=== PATIENT | male | born 1970 | race American Indian/Alaskan Native ===

== ENCOUNTER 2020-08-08 11:43 | Emergency (ER) | payer MEDICAID, OTHER ==
[2020-08-08] MEDS ORDERED: ACETAMINOPHEN 500 MG TAB PO ONE (13:33)
[2020-08-08] MEDS ORDERED: IBUPROFEN 400 MG TAB PO ONE (13:33)
--- NOTE | 2020-08-08 13:33 | Emergency Department Report ---
ED General Adult HPI - General Chief complaint: Dyspnea/Respdistress Stated complaint: RT/BACK PAIN/CANT WALK PUI?: No Time Seen by Provider: 08/08/20 13:20 Source: patient, RN notes reviewed Mode of arrival: Ambulatory Limitations: No Limitations - History of Present Illness Initial comments: The patient was evaluated in the emergency department for symptoms described in the history of present illness. He/she was evaluated in the context of the global COVID-19 pandemic, which necessitated consideration that the patient susana ht be at risk for infection with the virus that causes COVID-19. Institutional protocols and algorithms that pertain to the evaluation of patients at risk for COVID-19 are in a state of rapid change based on information released by regulatory bodies including the CDC and federal and state organizations. These policies and algorithms were followed during the patient's care in the emergency department. Please note that these policies, procedures and recommendations changed on a rapid basis. Pulmonology: Dr Sarah Stern Primary care doctor: Dr Castillo The patient is a pleasant 49-year-old gentleman. He is not known to myself previously. He appears to have a history of morbid obesity, hypertension, sleep apnea, and reports compliant with CPAP. He also reports chronic lower back pain. His primary care doctor has "prescribed me muscle relaxants and pain pills for my back pain." He reports that he has bilateral paralumbar lower back pain, which is nontraumatic, present for "over a year." The pain is sharp and throbbing, increases with palpation, range of motion and decreases with rest. He denies headache, neck pain, chest pain, new or different shortness of breath, new or different cough, abdominal pain, posterior calf pain/swelling, recent travel, immobilization, and DVT/pulmonary embolism risk factors. He reports that his nontraumatic paralumbar back pain does not radiate anywhere, but it is gradually getting worse, and he endorses "tightness" in his bilateral hamstrings. There is no bladder or bowel retention or incontinence, and there is no saddle anesthesia. Thus far, he has not attempted physical therapy and/or weight loss. -: month(s), year(s) (Over 1 year) Location: back Radiation: non-radiation Quality: aching Consistency: intermittent Improves with: rest Worsens with: movement, other (Palpation) - Related Data Previous Rx's Medication Instructions Recorded Last Taken Type Acetaminophen [Non-Aspirin Extra 500 mg PO Q6HR PRN #30 tablet 08/08/20 Unknown Rx Strength] Ibuprofen [Motrin] 600 mg PO Q8H PRN #30 tablet 08/08/20 Unknown Rx Allergies Allergy/AdvReac Type Severity Reaction Status Date / Time No Known Allergies Allergy Unverified 08/08/20 11:54 ED Review of Systems ROS: Stated complaint: RT/BACK PAIN/CANT WALK Other details as noted in HPI Constitutional: denies: fever Eyes: denies: eye discharge ENT: denies: hearing loss Respiratory: other (Chronic shortness of breath, but not new, worsened or different). denies: cough Cardiovascular: denies: chest pain Gastrointestinal: denies: abdominal pain Genitourinary: as per HPI Musculoskeletal: back pain Neurological: denies: weakness, numbness, paresthesias ED Past Medical Hx - Past Medical History Previous Medical History?: Yes Hx Hypertension: Yes - Surgical History Additional Surgical History: valve replacement 1992 - Social History Smoking Status: Current Some Day Smoker Substance Use Type: None - Medications Home Medications: Home Medications Medication Instructions Recorded Confirmed Last Taken Type Acetaminophen [Non-Aspirin Extra 500 mg PO Q6HR PRN #30 tablet 08/08/20 Unknown Rx Strength] Ibuprofen [Motrin] 600 mg PO Q8H PRN #30 tablet 08/08/20 Unknown Rx ED Physical Exam - General Limitations: No Limitations General appearance: alert, in no apparent distress, obese - Head Head exam: Present: atraumatic, normocephalic - Eye Eye exam: Present: normal appearance, EOMI. Absent: nystagmus - ENT ENT exam: Present: normal exam, normal orophraynx, mucous membranes moist, normal external ear exam - Neck Neck exam: Present: normal inspection, full ROM. Absent: tenderness, meningismus - Respiratory Respiratory exam: Present: normal lung sounds bilaterally. Absent: respiratory distress, wheezes, rales, rhonchi, stridor, decreased breath sounds - Cardiovascular Cardiovascular Exam: Present: regular rate, normal rhythm, normal heart sounds. Absent: bradycardia, tachycardia, irregular rhythm, systolic murmur, diastolic murmur, rubs, gallop - GI/Abdominal GI/Abdominal exam: Present: soft. Absent: distended, tenderness, guarding, rebound, rigid, pulsatile mass - Rectal Rectal exam: Present: deferred - Extremities Exam Extremities exam: Present: normal inspection, full ROM, other (2+ pulses noted in the bilateral upper and lower extremities. There is no palpable cord. negative Homans sign. Muscular compartments are soft. The pelvis is stable.). Absent: calf tenderness - Back Exam Back exam: Present: normal inspection, full ROM, paraspinal tenderness. Absent: tenderness, CVA tenderness (R) - Neurological Exam Neurological exam: Present: alert, oriented X3, normal gait, other (No facial droop. Tongue midline. Extraocular movements intact bilaterally. Facial sensation intact to light touch in V1, V2, V3 distribution bilaterally. 5 and a 5 strength in 4 extremities. Sensation intact to light touch in 4 extremities.). Absent: motor sensory deficit (Sensation intact to light touch, pinch, and proprioception in the bilateral lower extremities, downgoing plantar reflexes noted bilaterally) - Psychiatric Psychiatric exam: Present: normal affect, normal mood - Skin Skin exam: Present: warm, dry, intact, normal color. Absent: rash ED Course Vital Signs 08/08/20 08/08/20 08/08/20 11:53 11:54 13:20 Temperature 98.7 F Pulse Rate 99 H 98 H 92 H Respiratory 18 25 H Rate Blood Pressure 132/75 O2 Sat by Pulse 97 96 Oximetry 08/08/20 13:31 Temperature Pulse Rate 101 H Respiratory 22 Rate Blood Pressure 127/72 O2 Sat by Pulse Oximetry ED Medical Decision Making - Lab Data Vital Signs 08/08/20 08/08/20 08/08/20 11:53 11:54 13:20 Temperature 98.7 F Pulse Rate 99 H 98 H 92 H Respiratory 18 25 H Rate Blood Pressure 132/75 O2 Sat by Pulse 97 96 Oximetry 08/08/20 13:31 Temperature Pulse Rate 101 H Respiratory 22 Rate Blood Pressure 127/72 O2 Sat by Pulse Oximetry - Medical Decision Making Differential diagnosis, including but not limited to: Mechanical back pain, musculoskeletal back pain Assessment and plan: 49-year-old gentleman, who is pleasant, calm and cooperative, with resolved tachycardia, who is not hypoxic, who is not currently tachypneic, respiratory rate 18 on my examination, saturating 100% on room air, with a primary complaint of paralumbar back pain, present for approximately 1 year. He has no pulsatile abdominal mass, he walks with a steady gait, sensa tion is intact to light touch, pinch, and proprioception in the bilateral upper and lower extremities, and he is downgoing plantar reflexes. Examination and history not consistent or suggestive of epidural compression syndrome, or AAA. Extensive discussion had with the patient emphasizing need for diet, weight loss, physical activities as tolerated, and outpatient physical therapy. The patient endorses understanding. Critical care attestation.: If time is entered above; I have spent that time in minutes in the direct care of this critically ill patient, excluding procedure time. ED Disposition Clinical Impression: Back pain, Obesity Disposition: [id number] TO HOME OR SELFCARE Is pt being admited?: No Does the pt Need Aspirin: No Condition: Stable Instructions: Back Pain (ED) Additional Instructions: We recommend that the patient lose weight, participate in physical activities and exercise as tolerated, patient may take the prescribed pain medications as needed and directed, maximum daily dose of Tylenol to not exceed 3 g per 24 hours. We recommend that the patient also participate in physical therapy, he may follow-up with an outpatient primary care doctor, or ear specialist to arrange outpatient physical therapy. Avoid heavy lifting, and excessively strenuous physical activity, do not lift heavy objects at work, please follow-up with a spine physician or primary care doctor within the next 7 to 10 days. Please return to the emergency room right away with new pain, worsening pain, migration of pain, projectile vomiting, change in mental status, confusion, inability to tolerate liquid feeds, extremity numbness/weakness, bladder or bowel retention/incontinence. Referrals: FREDDIE CASTILLO III, GEOVANNA [Primary Care Provider] - 3-5 Days ANGELA VELEZ II, MD [Staff Physician] - 3-5 Days Forms: Work/School Release Form(ED)
[2020-08-08 13:34] VITALS: BP 127/72
== END 2020-08-08 14:00 | disposition home or self-care (01) ==
LOC: ED 11:43
DX: M54.5 Low back pain (principal); E66.9 Obesity, unspecified; I10 Essential (primary) hypertension; F17.200 Nicotine dependence, unspecified, uncomplicated; Z68.43 Body mass index [BMI] 50.0-59.9, adult; Z98.890 Other specified postprocedural states; Z79.1 Long term (current) use of non-steroidal anti-inflammatories (NSAID); Z79.899 Other long term (current) drug therapy